=== PATIENT | female | born 1990 | race Caucasian/White ===

== ENCOUNTER 2017-09-01 23:50 | Emergency (ER) | payer OTHER ==
[2017-09-01 23:59] VITALS: BP 127/83
[2017-09-02] MEDS ORDERED: IBUPROFEN 400 MG TABLET PO STA (00:11)
[2017-09-02] MEDS ORDERED: DEXAMETHASONE 10 MG/ML VIAL PO STA (00:11)
--- NOTE | 2017-09-02 00:14 | ED Physician Documentation ---
PD HPI NECK PAIN - Stated complaint Stated Complaint: NECK PAIN - Chief complaint Chief Complaint: General - History obtained from History obtained from: Patient - History of Present Illness Timing - onset: How many days ago (3) Timing - details: Gradual onset, Still present Location: Left Quality: Pain, Spasm, Aching Similar symptoms before: Has not had sx before Recently seen: Not recently seen - Additional information Additional information: Patient is a 27 year old male with no significant past medical history who is presenting to the emergency department for neck pain. Patient states that the pain started three days ago. Patient states that she felt a bump in her neck and thought it might be a tumor. 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 Review of Systems Ten Systems: 10 systems reviewed and negative Musculoskeletal: reports: Neck pain PD PAST MEDICAL HISTORY - Past Medical History Past Medical History: No Cardiovascular: None Respiratory: None Neuro: None Endocrine/Autoimmune: None GI: None FEATHER TRIMMER: None : None HEENT: None Psych: None Musculoskeletal: None Derm: None - Past Surgical History Past Surgical History: No - Present Medications Home Medications: Ambulatory Orders Medication Instructions Recorded Confirmed Norgestimate-Ethinyl Estradiol 1 each PO 06/23/13 12/01/13 [Ortho Tri-Cyclen Lo] - Allergies Allergies/Adverse Reactions: Allergies Allergy/AdvReac Type Severity Reaction Status Date / Time No Known Drug Allergies Allergy Verified 06/23/13 16:38 - Social History Does the pt smoke?: No Smoking Status: Never smoker Does the pt drink ETOH?: Yes Does the pt have substance abuse?: No - Immunizations Immunizations are current?: Yes - POLST Patient has POLST: No PD ED PE NORMAL - Vitals Vital signs reviewed: Yes - General General: Alert and oriented X 3, No acute distress - HEENT HEENT: Atraumatic - Cardiac Cardiac: RRR - Respiratory Respiratory: No respiratory distress - Derm Derm: Normal color, Warm and dry - Extremities Extremities: No deformity - Neuro Neuro: Alert and oriented X 3 Eye Opening: Spontaneous - Psych Psych: Normal mood PD ED PE EXPANDED - Neck Neck: Supple w/out meningeal sx, Soft tissue TTP (mild tenderness to palpation of left parspinal muscles and trapezius muscle ). No: Bony TTP, Limited ROM Results - Vitals Vitals: Vital Signs - 24 hr 09/01/17 09/02/17 23:56 00:19 Temperature 36.7 C Heart Rate 73 Respiratory 17 17 Rate Blood Pressure 127/83 H O2 Saturation 100 Oxygen O2 Source Room air PD MEDICAL DECISION MAKING - ED course Complexity details: reviewed old records, re-evaluated patient, considered differential, d/w patient ED course: Patient was seen and examined at bedside. patient was well appearing and in no distress. patient had no neurological deficit. Patient was treated with ibuprofen and decadron. Patient required no further work up and was stable for discharge with outpatient follow up. - Sepsis Event Vital Signs: Vital Signs - 24 hr 09/01/17 09/02/17 23:56 00:19 Temperature 36.7 C Heart Rate 73 Respiratory 17 17 Rate Blood Pressure 127/83 H O2 Saturation 100 Oxygen O2 Source Room air Departure - Departure Disposition: 01 Home, Self Care Clinical Impression: Neck muscle spasm Condition: Good Instructions: ED Spasm Muscle Follow-Up: primary,care provider [Other] - As Needed Comments: Your symptoms today are likely secondary to a muscle spasm. You can take motrin or tylenol as needed for pain. You can alternate between ice and heat. Massage may also help improve your symptoms. You should follow up with your doctor if your symptoms persist. you may return to the emergency department at any time for new, worsening or uncontrollable symptoms.
[2017-09-02] MEDS ORDERED: CHERRY SYRUP 10 ML UDC PO ONE (00:24)
== END 2017-09-02 00:19 | disposition home or self-care (01) ==
LOC: ED 23:50
DX: M54.2 Cervicalgia (principal); M62.838 Other muscle spasm
CPT/HCPCS: 99282; 99283; A9270

== ENCOUNTER 2018-07-19 22:30 | Emergency (ER) | payer OTHER ==
--- NOTE | 2018-07-19 22:45 | ED Physician Documentation ---
PD HPI NVD - Stated complaint Stated Complaint: NAUSEA/VOMITING/DIARRHEA - Chief complaint Chief Complaint: Back Pain - History obtained from History obtained from: Patient - History of Present Illness Timing - onset: Yesterday Timing - details: Gradual onset, Waxing and waning Pain level max: 0 Pain level now: 0 Associated symptoms: No: Fever, Abdominal pain Worsened by: Eating Similar symptoms before: Has not had sx before Recently seen: Not recently seen - Additonal information Additional information: diarrhea since last night which has gradually worsened, becoming associated with nausea, vomiting since 6:30 PM today. mild improvement with PO zofran at home Review of Systems Constitutional: reports: Reviewed and negative GI: reports: Nausea, Vomiting, Diarrhea. denies: Abdominal Pain : denies: Dysuria, Frequency, Now EGA PD PAST MEDICAL HISTORY - Past Medical History Cardiovascular: None Respiratory: None Neuro: None Endocrine/Autoimmune: None GI: None PASTORAL ASSISTANT: None : None HEENT: None Psych: None Musculoskeletal: None Derm: None - Past Surgical History Past Surgical History: No - Present Medications Home Medications: Ambulatory Orders Medication Instructions Recorded Confirmed Norgestimate-Ethinyl Estradiol 1 each PO 06/23/13 12/01/13 [Ortho Tri-Cyclen Lo] Diphenoxylate/Atropine [Lomotil] 1 - 2 each PO QID PRN #10 tablet 07/20/18 Ondansetron Odt [Zofran] 4 mg TL Q6H PRN #10 tablet 07/20/18 - Allergies Allergies/Adverse Reactions: Allergies Allergy/AdvReac Type Severity Reaction Status Date / Time No Known Drug Allergies Allergy Verified 07/19/18 22:40 - Social History Does the pt smoke?: No Smoking Status: Never smoker Does the pt drink ETOH?: Yes Does the pt have substance abuse?: No - Immunizations Immunizations are current?: Yes - POLST Patient has POLST: No PD ED PE NORMAL - Vitals Vital signs reviewed: Yes - General General: Alert and oriented X 3, No acute distress, Well developed/nourished - HEENT HEENT: Moist mucous membranes - Neck Neck: Supple, no meningeal sign - Cardiac Cardiac: No murmur - Respiratory Respiratory: No respiratory distress, Clear bilaterally - Abdomen Abdomen: Soft, Non tender, Non distended - Back Back: No CVA TTP - Derm Derm: Normal color, Warm and dry PD ED PE EXPANDED - Cardiac Cardiac: Tachy, Regular Rhythm Results - Vitals Vitals: Vital Signs - 24 hr 07/19/18 07/20/18 22:38 01:05 Temperature 37.2 C Heart Rate 112 H 92 Respiratory 17 18 Rate Blood Pressure 110/78 99/72 O2 Saturation 99 99 Oxygen O2 Source Room air - Labs Labs: Laboratory Tests 07/19/18 07/19/18 23:50 23:50 WBC 8.6 RBC 4.83 Hgb 15.1 Hct 44.6 MCV 92.5 MCH 31.3 H MCHC 33.9 RDW 12.9 Plt Count 167 MPV 9.1 Neut # (Auto) 8.0 H Lymph # (Auto) 0.3 L [place] # (Auto) 0.3 Eos # (Auto) 0.0 Baso # (Auto) 0.0 Absolute Nucleated RBC 0.00 Nucleated RBC % 0.0 Sodium 139 Potassium 3.6 Chloride 107 Carbon Dioxide 20 L Anion Gap 12.0 BUN 11 Creatinine 0.7 Estimated GFR (MDRD) 100 Glucose 109 H Calcium 9.1 PD MEDICAL DECISION MAKING - ED course Complexity details: reviewed results, re-evaluated patient, considered differential, d/w patient ED course: On reevaluation after IV fluids and zofran and po lomotil, patient reports significant improvement and comfortable going home Departure - Departure Disposition: 01 Home, Self Care Clinical Impression: Nausea & vomiting, Diarrhea Condition: Good Instructions: ED Vomiting Diarrhea Nonspecific Ad Follow-Up: BREEZY JACKSON [Primary Care Provider] - Prescriptions: Diphenoxylate/Atropine [Lomotil] 1 - 2 each PO QID PRN #10 tablet PRN Reason: Diarrhea Ondansetron Odt [Zofran] 4 mg TL Q6H PRN #10 tablet PRN Reason: Nausea / Vomiting Discharge Date/Time: 07/20/18 01:23
[2018-07-19] MEDS ORDERED: SODIUM CHLORIDE 0.9% 1,000 ML IV STA (23:38)
[2018-07-19] MEDS ORDERED: ONDANSETRON 4 MG/2 ML VIAL IVP STA (23:38)
[2018-07-19] MEDS ORDERED: DIPHENOX/ATROPINE 2.5/0.025 MG TABLET PO STA (23:39)
[2018-07-19 23:59] LABS: BASOPHILS % (AUTO) 0.2 %; HGB - HEMOGLOBIN 15.1 g/dL (12.0-16.0); LYMPHOCYTES # (AUTO) 0.3 10^3/uL (1.5-3.5); LYMPHOCYTES % (AUTO) 3.5 %; MEAN CORPUSCULAR HEMOGLOBIN 31.3 pg (27.0-31.0); MEAN CORPUSCULAR HGB CONC 33.9 g/dL (32.0-36.0); MEAN CORPUSCULAR VOLUME 92.5 fL (81.0-99.0); MEAN PLATELET VOLUME 9.1 fL (7.9-10.8); MONOCYTES # (AUTO) 0.3 10^3/uL (0.0-1.0); MONOCYTES % (AUTO) 3.2 %; NEUTROPHILS % (AUTO) 93.1 %; PLT - PLATELET COUNT 167 10^3/uL (130-450); RED BLOOD COUNT 4.83 10^6/uL (4.20-5.40); RED CELL DISTRIBUTION WIDTH 12.9 % (12.0-15.0); WHITE BLOOD COUNT 8.6 x10^3/uL (4.8-10.8)
[2018-07-20 00:28] LABS: CALCIUM 9.1 mg/dL (8.5-10.3); CREATININE 0.7 mg/dL (0.4-1.0)
[2018-07-20] MEDS ORDERED: ONDANSETRON ODT 4 MG Prepack 2 TL STA (00:59)
[2018-07-20 01:05] VITALS: BP 99/72
== END 2018-07-20 01:23 | disposition home or self-care (01) ==
LOC: ED 22:30
DX: R11.2 Nausea with vomiting, unspecified (principal); R19.7 Diarrhea, unspecified
CPT/HCPCS: 36415; 80048; 85025; 96374; 99283; A9270

== ENCOUNTER 2018-09-04 23:59 | Emergency (ER) | payer OTHER ==
[2018-09-05 00:11] VITALS: BP 132/77
--- NOTE | 2018-09-05 00:19 | ED Physician Documentation ---
PD HPI ABD PAIN - Stated complaint Stated Complaint: ABD PX - Chief complaint Chief Complaint: Abd Pain - History obtained from History obtained from: Patient - History of Present Illness Timing - onset: How many days ago (1) Timing - duration: Days (1) Timing - details: Gradual onset Pain level max: 4 Pain level now: 3 Quality: Sharp, Dull, Stabbing Location: RLQ Radiation: Other (To just below the bellybutton) Associated symptoms: Diarrhea (Small amount this morning). No: Fever, Nausea, Vomiting, Melena, Hematochezia, Dysuria, Hematuria, Dizzy Similar symptoms before: No diagnosis Recently seen: Not recently seen - Additional information Additional information: This is a 28-year-old presents with complaints at 6 PM yesterday started to have pain in her right lower abdomen there is a constant, 2-3/ 10 Pain that sometimes gets sharp and stabbing up to 4 out of 10. It will radiate just below her bel lybutton. She has had this in the past and was evaluated in the emergency department diagnosed with gas. She has not taken any medications for the pain today and was told by a coworker that she needed to jump off of a small bench to tell whether or not it was her appendix. When she did that it did not make the pain hurt anymore. She had some mild diarrhea this morning without blood in it but no nausea or vomiting. She has not had a fever. She denies stating her last menstrual period was August 22. She said no urinary symptoms of dysuria or frequency or discharge. She has not felt dizzy. She has had some nasal congestion that she is related to allergies. She is not taking any medications for it. She denies shortness of breath but has been having cardiac palpitations and is actually currently wearing a 14-day cardiac sonographer. She is a smoker but denies use of alcohol. She works as a HEALTH AND SAFETY TECH. Review of Systems Constitutional: denies: Fever Nose: reports: Congestion Throat: denies: Sore throat Cardiac: reports: Palpitations Respiratory: denies: Dyspnea, Cough GI: reports: Abdominal Pain, Diarrhea. denies: Nausea, Vomiting : reports: LMP (August 22). denies: Dysuria, Frequency, Hematuria Skin: denies: Rash PD PAST MEDICAL HISTORY - Past Medical History Past Medical History: No Cardiovascular: None Respiratory: None Neuro: None Endocrine/Autoimmune: None GI: None CHANNEL PROCESS SUPERVISOR: None : None HEENT: None Psych: None Musculoskeletal: None Derm: None - Past Surgical History Past Surgical History: No - Present Medications Home Medications: Ambulatory Orders Medication Instructions Recorded Confirmed Norgestimate-Ethinyl Estradiol 1 each PO 06/23/13 12/01/13 [Ortho Tri-Cyclen Lo] Diphenoxylate/Atropine [Lomotil] 1 - 2 each PO QID PRN #10 tablet 07/20/18 Ondansetron Odt [Zofran] 4 mg TL Q6H PRN #10 tablet 07/20/18 - Allergies Allergies/Adverse Reactions: Allergies Allergy/AdvReac Type Severity Reaction Status Date / Time No Known Drug Allergies Allergy Verified 09/05/18 00:11 - Social History Does the pt smoke?: Yes Smoking Status: Current every day smoker Does the pt drink ETOH?: Yes Does the pt have substance abuse?: No - Immunizations Immunizations are current?: Yes - POLST Patient has POLST: No PD ED PE NORMAL - Vitals Vital signs reviewed: Yes (Thin 28-year-old woman who is in the room with a couple of friends. She is) - General General: Alert and oriented X 3, No acute distress, Well developed/nourished - HEENT HEENT: Atraumatic, PERRL, EOMI, Moist mucous membranes, Pharynx benign - Neck Neck: No adenopathy - Cardiac Cardiac: RRR, No murmur - Respiratory Respiratory: No respiratory distress, Clear bilaterally - Abdomen Abdomen: Normal bowel sounds, Soft, Non distended, Other (She does complain of tenderness in the right lower quadrant. No guarding no rebound.) - Derm Derm: Normal color, No rash - Neuro Neuro: Alert and oriented X 3, Normal speech, Other (Grossly neurologically intact without obvious deficits.) - Psych Psych: Normal mood, Normal affect Results - Vitals Vitals: Vital Signs - 24 hr 09/05/18 09/05/18 00:09 00:52 Temperature 36.9 C Heart Rate 72 Respiratory 17 17 Rate Blood Pressure 132/77 H O2 Saturation 100 Oxygen O2 Source Room air - Labs Labs: Laboratory Tests 09/05/18 09/05/18 09/05/18 00:50 01:05 01:05 WBC 7.2 RBC 4.24 Hgb 13.2 Hct 39.4 MCV 92.8 MCH 31.0 MCHC 33.4 RDW 13.3 Plt Count 198 MPV 9.2 Neut # (Auto) 4.2 Lymph # (Auto) 2.5 [place] # (Auto) 0.5 Eos # (Auto) 0.1 Baso # (Auto) 0.0 Absolute Nucleated RBC 0.00 Nucleated RBC % 0.0 Sodium 140 Potassium 3.2 L Chloride 107 Carbon Dioxide 22 Anion Gap 11.0 BUN 14 Creatinine 0.8 Estimated GFR (MDRD) 85 L Glucose 80 Calcium 9.2 Total Bilirubin 0.2 AST 18 ALT 12 Alkaline Phosphatase 45 Total Protein 7.4 Albumin 4.8 Globulin 2.6 Albumin/Globulin Ratio 1.8 Lipase 37 Urine Color YELLOW Urine Clarity SL. CLOUDY Urine pH 7.0 Ur Specific [place] <=1.005 Urine Protein NEGATIVE Urine Glucose (UA) NEGATIVE Urine Ketones NEGATIVE Urine Occult Blood NEGATIVE Urine Nitrite NEGATIVE Urine Bilirubin NEGATIVE Urine Urobilinogen 0.2 (NORMAL) Ur Leukocyte Esterase LARGE H Urine RBC None Seen Urine WBC 0-3 Ur Squamous Epith Cells MOD Squamous H Urine Bacteria Rare Ur Microscopic Review INDICATED Urine Culture Comments NOT INDICATED Urine HCG, Qual NEGATIVE PD MEDICAL DECISION MAKING - ED course Complexity details: d/w patient ED course: Patient and her friends were laughing and giggling in the room during their stay. Patient's white blood cell count is normal as well as liver enzymes and pancreas. Her urinalysis was quite contaminated dipped positive for leukocyte esterase but only 0-3 white blood cells per high-power field. She is not . Results were discussed with her. At this time I do not feel that there is any indication for imaging. The patient is sent home with precautions to return if worsening. Departure - Departure Disposition: 01 Home, Self Care Clinical Impression: Abdominal pain Qualifiers: Abdominal location: right lower quadrant Qualified Code(s): R10.31 - Right lower quadrant pain Condition: Good Instructions: ED Abdominal Pain Unkn Cause Follow-Up: BREEZY JACKSON [Primary Care Provider] - Comments: May try milk of magnesia or Pepto-Bismol. Follow-up if you have increasing pain, pain is not resolving in 48 hours, you develop a fever or are vomiting associated with it.
[2018-09-05 01:02] LABS: BILIRUBIN,URINE NEGATIVE (NEGATIVE); GLUCOSE, URINE (UA) NEGATIVE (NEGATIVE); KETONES,URINE (UA) NEGATIVE (NEGATIVE); LEUKOCYTE ESTERASE, URINE LARGE (NEGATIVE); NITRITE,URINE NEGATIVE (NEGATIVE); OCCULT BLOOD,URINE NEGATIVE (NEGATIVE); PROTEIN,URINE NEGATIVE (NEGATIVE); UROBILINOGEN,URINE 0.2 (NORMAL) E.U./dL (NORMAL)
[2018-09-05 01:11] LABS: BASOPHILS % (AUTO) 0.6 %; EOSINOPHILS # (AUTO) 0.1 10^3/uL (0.0-0.7); EOSINOPHILS % (AUTO) 0.8 %; HGB - HEMOGLOBIN 13.2 g/dL (12.0-16.0); LYMPHOCYTES # (AUTO) 2.5 10^3/uL (1.5-3.5); LYMPHOCYTES % (AUTO) 34.3 %; MEAN CORPUSCULAR HGB CONC 33.4 g/dL (32.0-36.0); MEAN CORPUSCULAR VOLUME 92.8 fL (81.0-99.0); MEAN PLATELET VOLUME 9.2 fL (7.9-10.8); MONOCYTES # (AUTO) 0.5 10^3/uL (0.0-1.0); MONOCYTES % (AUTO) 6.4 %; NEUTROPHILS # (AUTO) 4.2 10^3/uL (1.5-6.6); NEUTROPHILS % (AUTO) 57.9 %; PLT - PLATELET COUNT 198 10^3/uL (130-450); RED BLOOD COUNT 4.24 10^6/uL (4.20-5.40); RED CELL DISTRIBUTION WIDTH 13.3 % (12.0-15.0); WHITE BLOOD COUNT 7.2 x10^3/uL (4.8-10.8)
[2018-09-05 01:12] LABS: CLARITY,URINE SL. CLOUDY (CLEAR); HCG UR QUAL NEGATIVE
[2018-09-05 01:20] LABS: RBC,URINE None Seen /HPF (0-5); SQUAMOUS EPITHELIAL CELL,UR MOD Squamous (<= Few)
[2018-09-05 01:21] LABS: BACTERIA,URINE Rare /HPF (None Seen)
[2018-09-05 01:25] LABS: ALBUMIN 4.8 g/dL (3.2-5.5); ALBUMIN/GLOBULIN RATIO 1.8 (1.0-2.2); BILIRUBIN,TOTAL 0.2 mg/dL (0.2-1.0); CALCIUM 9.2 mg/dL (8.5-10.3); CREATININE 0.8 mg/dL (0.4-1.0); TOTAL PROTEIN 7.4 g/dL (6.7-8.2)
== END 2018-09-05 01:51 | disposition home or self-care (01) ==
LOC: ED 23:59
DX: R10.31 Right lower quadrant pain (principal); F17.200 Nicotine dependence, unspecified, uncomplicated
CPT/HCPCS: 36415; 80053; 81001; 81003; 81025; 83690; 85025; 87086; 99282; 99283

== ENCOUNTER 2020-04-10 21:13 | Emergency (ER) | payer OTHER ==
[2020-04-10 21:28] VITALS: BP 126/80
--- NOTE | 2020-04-10 21:31 | ED Physician Documentation ---
History of Present Illness - Stated complaint Stated Complaint: NEEDLE STICK - Chief complaint Chief Complaint: Laceration - History obtained from History obtained from: Patient - History of Present Illness Timing: Today Pain level max: 0 Pain level now: 0 - Additonal information Additional information: 29-year-old female with a needlestick exposure at work today. She had used a lancet on a patient to check a blood sugar when it accidentally stuck her finger as well. No bleeding. Patient is not known to have any HIV or hep C. Review of Systems Constitutional: denies: Fever, Chills GI: denies: Vomiting : denies: Now EGA Skin: denies: Rash PD PAST MEDICAL HISTORY - Past Medical History Cardiovascular: None Respiratory: None Neuro: None Endocrine/Autoimmune: None GI: None RESEARCH LIBRARIAN: None : None HEENT: None Psych: None Musculoskeletal: None Derm: None - Past Surgical History Past Surgical History: No - Present Medications Home Medications: Ambulatory Orders Medication Instructions Recorded Confirmed No Known Home Medications 04/10/20 04/10/20 - Allergies Allergies/Adverse Reactions: Allergies Allergy/AdvReac Type Severity Reaction Status Date / Time No Known Drug Allergies Allergy Verified 04/10/20 21:28 - Social History Does the pt smoke?: Yes Smoking Status: Current every day smoker Does the pt drink ETOH?: Yes Does the pt have substance abuse?: No - Immunizations Immunizations are current?: Yes - POLST Patient has POLST: No PD ED PE NORMAL - Vitals Vital signs reviewed: Yes - General General: Alert and oriented X 3, No acute distress - HEENT HEENT: Moist mucous membranes - Neck Neck: Supple, no meningeal sign - Cardiac Cardiac: RRR - Respiratory Respiratory: No respiratory distress, Clear bilaterally - Derm Derm: Warm and dry - Extremities Extremities: Other (Small puncture wound on the left index finger. No active bleeding.) - Neuro Neuro: Alert and oriented X 3 Results - Vitals Vitals: Vital Signs - 24 hr 04/10/20 21:15 Temperature 36.2 C L Heart Rate 83 Respiratory 18 Rate Blood Pressure 126/80 O2 Saturation 100 Oxygen O2 Source Room air - Labs Labs: Laboratory Tests 04/10/20 04/10/20 21:39 21:39 WBC 7.1 RBC 4.39 Hgb 13.9 Hct 42.0 MCV 95.7 MCH 31.7 H MCHC 33.1 RDW 12.3 Plt Count 249 MPV 10.4 Sodium 139 Potassium 3.8 Chloride 104 Carbon Dioxide 22 Anion Gap 13.0 BUN 11 Creatinine 0.7 Estimated GFR (MDRD) 99 Glucose 95 Calcium 9.5 Total Bilirubin 0.7 AST 16 ALT 12 Alkaline Phosphatase 51 Total Protein 8.1 Albumin 5.2 Globulin 2.9 Albumin/Globulin Ratio 1.8 PD MEDICAL DECISION MAKING - ED course Complexity details: considered differential, d/w patient ED course: Employee exposure panel was drawn. No indication for postexposure prophylaxis. We did discuss risks and benefits. She is a low risk exposure. Patient will follow up with [facility]. This document was made in part using voice recognition software. While efforts are made to proofread this document, sound alike and grammatical errors may occur. Departure - Departure Disposition: 01 Home, Self Care Clinical Impression: Needle stick injury of finger Condition: Good Instructions: ED Body Fluid Exp HC Worker Follow-Up: employee,health for further care [Other] Comments: Your testing was sent today. Follow-up with [facility] for further care. There is no need for postexposure prophylaxis at this time. Discharge Date/Time: 04/10/20 22:05
[2020-04-10 21:45] LABS: HGB - HEMOGLOBIN 13.9 g/dL (12.0-16.0); MEAN CORPUSCULAR HEMOGLOBIN 31.7 pg (27.0-31.0); MEAN CORPUSCULAR HGB CONC 33.1 g/dL (32.0-36.0); MEAN CORPUSCULAR VOLUME 95.7 fL (81.0-99.0); MEAN PLATELET VOLUME 10.4 fL (7.9-10.8); RED BLOOD COUNT 4.39 10^6/uL (4.20-5.40); RED CELL DISTRIBUTION WIDTH 12.3 % (12.0-15.0); WHITE BLOOD COUNT 7.1 x10^3/uL (4.8-10.8)
[2020-04-10 21:57] LABS: ALBUMIN 5.2 g/dL (3.2-5.5); ALBUMIN/GLOBULIN RATIO 1.8 (1.0-2.2); BILIRUBIN,TOTAL 0.7 mg/dL (0.2-1.0); CALCIUM 9.5 mg/dL (8.5-10.3); CREATININE 0.7 mg/dL (0.4-1.0); TOTAL PROTEIN 8.1 g/dL (6.7-8.2)
[2020-04-13 15:32] LABS: HEPATITIS C ANTIBODY NON-REACTIVE (NON-REACTIVE)
[2020-04-13 15:46] LABS: HIV AG/AB 4TH GEN NON-REACTIVE (NON-REACTIVE)
== END 2020-04-10 22:05 | disposition home or self-care (01) ==
LOC: ED 21:13
DX: S61.231A Puncture wound without foreign body of left index finger without damage to nail, initial encounter (principal); Z77.21 Contact with and (suspected) exposure to potentially hazardous body fluids; W46.1XXA Contact with contaminated hypodermic needle, initial encounter; Y93.F9 Activity, other caregiving; Y92.239 Unspecified place in hospital as the place of occurrence of the external cause; Y99.0 Civilian activity done for income or pay; F17.200 Nicotine dependence, unspecified, uncomplicated
CPT/HCPCS: 36415; 80053; 85027; 86317; 86803; 87389; 99282; 99283

== ENCOUNTER 2020-05-23 00:17 | Outpatient (CLI) | payer OTHER ==
[2020-05-26 08:31] LABS: HIV AG/AB 4TH GEN NON-REACTIVE (NON-REACTIVE)
[2020-05-26 12:59] LABS: HEPATITIS B SURFACE AB QN IMM <5 mIU/mL (> OR = 10); HEPATITIS C ANTIBODY NON-REACTIVE (NON-REACTIVE)
== END 2020-05-23 00:18 | disposition home or self-care (01) ==
LOC: LAB 00:17
PROVIDERS: ATTEND Emergency Medicine
DX: Z01.89 Encounter for other specified special examinations (principal)
CPT/HCPCS: 36415; 86317; 86803; 87389

== ENCOUNTER 2020-07-11 22:18 | Outpatient (CLI) | payer OTHER | END 2020-07-11 22:19 | disposition home or self-care (01) | LOC: LAB 22:18 | PROVIDERS: ATTEND Emergency Medicine | DX: Z53.9 Procedure and treatment not carried out, unspecified reason (principal) | CPT/HCPCS: 36415; 86317; 86803; 87389 ==